=== PATIENT | female | born 1980 | race Caucasian/White ===

== ENCOUNTER 2017-02-12 14:40 | Emergency (ER) | payer OTHER ==
[~2017-02-12] VITALS: Ht 149.9 cm; Wt 72.6 kg
--- NOTE | 2017-02-12 14:40 | NUR ---
Patient was BIB [place] [employer] and taken to bed 08 waiting to be evaluated for medical clearance.
--- NOTE | 2017-02-12 14:42 | NUR ---
PATIENT BIB [facility] FOR PRE-BOOK CLEARANCE . PT STATES SHE HAS HX OF ASTHMA AND FEELS SOB AND HAS PAIN W/INSPIRATION . DENIES N/V/D; SKIN IS PINK/WARM/DRY; AAOX4 WITH EVEN AND STEADY GAIT; LUNGS CLEAR BL; HR EVEN AND REGULAR; PT DENIES ANY FEVER, OR COUGH AT THIS TIME; PATIENT STATES PAIN OF 10/10 AT THIS TIME; VSS; PATIENT POSITIONED FOR COMFORT; HOB ELEVATED; BEDRAILS UP X2; BED DOWN. ER MD MADE AWARE OF PT STATUS. [facility]IE[facility]e AT BEDSIDE.
--- NOTE | 2017-02-12 14:45 | NUR ---
DR. C[place]AND AT BEDSIDE.
[2017-02-12 14:48] VITALS: BP 136/92
[2017-02-12] MEDS ORDERED: ACETAMINOPHEN 325 MG TAB PO ONE (14:55)
--- NOTE | 2017-02-12 15:04 | NUR ---
MEDICATION ADMINISTERED ORDERED.
--- NOTE | 2017-02-12 15:08 | NUR ---
WENT TO XRAY ACCOMPANIED BY CHRISTEL AND MONI CANTU.
[2017-02-12 15:46] VITALS: BP 119/82
--- NOTE | 2017-02-12 15:49 | NUR ---
Patient discharged with v/s stable. Written and verbal after care instructions given and explained. Patient verbalized understanding. Police ESCORT with steady gait. All questions addressed prior to discharge. Advised to follow up with PMD.
== END 2017-02-12 15:49 ==
LOC: MED 14:40
DX: S20.219A Contusion of unspecified front wall of thorax, initial encounter (principal); F17.210 Nicotine dependence, cigarettes, uncomplicated; V43.52XA Car driver injured in collision with other type car in traffic accident, initial encounter; Y93.I9 Activity, other involving external motion; Y92.488 Other paved roadways as the place of occurrence of the external cause; Y99.8 Other external cause status
CPT/HCPCS: 71020; 99284

== ENCOUNTER 2018-07-24 10:09 | Emergency (ER) | payer OTHER ==
[~2018-07-24] VITALS: Ht 154.9 cm; Wt 80.7 kg
[2018-07-24 10:13] VITALS: BP 99/57
--- NOTE | 2018-07-24 10:15 | NUR ---
PATIENT BIB [place] [employer]. PATIENT EXAMINED BY DR. WHEELER. PT DENIES PAIN, NO OTHER COMPLAINTS. AMB TO CHAIR E. ED NOTIFIED.
[2018-07-24 10:47] VITALS: BP 99/57
--- NOTE | 2018-07-24 10:49 | NUR ---
PATIENT MEDICALLY CLEARED AND RELEASED IN CUSTODY IN STABLE CONDITION. ORIGINAL PRE-BOOK FORM GIVEN TO OFFICER .
== END 2018-07-24 10:49 ==
LOC: MED 10:09
DX: Z02.89 Encounter for other administrative examinations (principal)
CPT/HCPCS: 99283

== ENCOUNTER 2019-02-19 12:14 | Inpatient (IN) | payer OTHER ==
[~2019-02-19] VITALS: Ht 154.9 cm; Wt 122.5 kg
[2019-02-19 12:40] VITALS: BP 105/59
[2019-02-19] MEDS ORDERED: METHYLERGONOVINE 0.2 MG/ML AMP IM PRN (14:10)
[2019-02-19] MEDS ORDERED: BLOOD GLUCOSE MONITORING 1 DEV DEV FS SCH (14:10)
[2019-02-19] MEDS ORDERED: OXYTOCIN 20 UNITS in LACTATED RINGERS 1,000 ML IV SCH (14:10)
[2019-02-19] MEDS ORDERED: CARBOPROST 250 MCG/ML AMP IM PRN (14:10)
[2019-02-19] MEDS ORDERED: LACTATED RINGERS 1,000 ML IV SCH (14:10)
[2019-02-19] MEDS ORDERED: MISOPROSTOL 25 MCG TAB VG SCH (14:10)
[2019-02-19] MEDS ORDERED: MISOPROSTOL 25 MCG TAB ONE ×2 (14:27→18:30)
[2019-02-19 15:04] LABS: HEMATOCRIT 39.5 % (36-48); HEMOGLOBIN 13.3 g/dL (12.0-16.0); MEAN CORPUSCULAR HEMOGLOBIN 29 pg (27-31); MEAN CORPUSCULAR HGB CONC 34 g/dL (33-37); MEAN CORPUSCULAR VOLUME 85.7 fL (80-94); PLATELET COUNT (AUTO) 137 K/uL (140-450); RED BLOOD CELL COUNT(AUTO) 4.61 MIL/uL (4.20-5.40); RED CELL DISTRIBUTION WIDTH 13.9 % (11.6-13.7); WHITE BLOOD COUNT (AUTO) 7.3 K/uL (4.8-10.8)
[2019-02-19 15:11] LABS: APPEARANCE,URINE CLEAR (CLEAR); BILIRUBIN,URINE NEGATIVE (NEGATIVE); BLOOD, URINE NEGATIVE (NEGATIVE); COLOR,URINE YELLOW (YELLOW); LEUKOCYTE ESTERASE ,URINE 1+ (NEGATIVE); NITRITE, URINE NEGATIVE (NEGATIVE); UGLUCOSE NEGATIVE (NEGATIVE)
[2019-02-19 16:01] LABS: RBC,URINE 0 /HPF (0-5); WBC,URINE 0-5 /HPF (0-5)
[2019-02-19 16:20] LABS: ANION GAP 16.7 (8-16); CARBON DIOXIDE 20.2 mmol/L (21-32); CREATININE 0.6 mg/dL (0.6-1.3); POTASSIUM 3.9 mmol/L (3.5-5.1)
[2019-02-19 16:21] LABS: PLATELET COUNT,MANUAL 140 K/uL (150-450)
[2019-02-19 16:22] LABS: EOSINOPHILS # (AUTO) 0.2 K/uL (0-0.4); LYMPHOCYTES # (AUTO) 2.1 K/uL (2.5-16.5); MONOCYTES # (AUTO) 0.5 K/uL (0.8-1.0); NEUTROPHILS # (AUTO) 4.6 K/uL (1.8-7.7)
[2019-02-19 16:23] LABS: BASOPHILS % (AUTO) 0.5 % (0.0-2.0); BASOPHILS % (MANUAL) 0 % (0-2); EOSINOPHILS % (AUTO) 2.3 % (0.0-4.0); EOSINOPHILS % (MANUAL) 0 % (0-4); LYMPHOCYTES % (AUTO) 32.3 % (20.5-51.1); LYMPHOCYTES % (MANUAL) 32 % (20-46); MONOCYTES % (AUTO) 6.4 % (1.7-9.3); MONOCYTES % (MANUAL) 3 % (5-12); NEUTROPHILS % (AUTO) 62.5 % (42.2-75.2)
[2019-02-19 16:26] LABS: ALBUMIN 2.5 g/dL (3.4-5.0); TOTAL BILIRUBIN 0.2 mg/dL (0.0-1.0)
[2019-02-19] MEDS ORDERED: PREN-380 PO (18:33)
[2019-02-19] MEDS ORDERED: INSU100S10 SC (18:33)
[2019-02-19] MEDS ORDERED: OXYTOCIN 20 UNITS/LR PREMIX 1,000 ML IV ONE (20:57)
[2019-02-19] MEDS ORDERED: ROPIVACAINE 0.2%/NS PREMIX 100 ML EPI ONE (23:35)
--- NOTE | 2019-02-20 08:10 | NUR ---
PATIENT HAS BEEN SCREENED AND CATEGORIZED LOW NUTRITION RISK. PATIENT WILL BE SEEN WITHIN 7 DAYS OF ADMISSION. 02/26/[address]
[2019-02-20] MEDS ORDERED: ROPIVACAINE 0.2%/NS PREMIX 100 ML EPI ONE (09:49)
[2019-02-20] MEDS ORDERED: fentaNYL 0.05 MG/ML VIAL ONE (13:55)
[2019-02-20] MEDS ORDERED: IBUPROFEN 800 MG TAB PO PRN (14:15)
[2019-02-20] MEDS ORDERED: MEASLES, MUMPS, AND RUBELLA 1 VIAL SQVAC PRN (14:15)
[2019-02-20] MEDS ORDERED: BENZOCAINE/MENTHOL 20%-0.5% 60 GM CAN TP PRN (14:15)
[2019-02-20] MEDS ORDERED: METHYLERGONOVINE 0.2 MG/ML AMP IM PRN (14:15)
[2019-02-20] MEDS ORDERED: METHYLERGONOVINE 0.2 MG TAB PO PRN (14:15)
[2019-02-20] MEDS ORDERED: OXYTOCIN 10 UNITS/ML VIAL IM PRN (14:15)
[2019-02-20] MEDS ORDERED: fentaNYL 0.05 MG/ML VIAL IVP ONE (14:20)
[2019-02-21 11:12] LABS: HEMATOCRIT 33.7 % (36-48); HEMOGLOBIN 11.1 g/dL (12.0-16.0)
[2019-02-21] MEDS ORDERED: INFLUENZA VACCINE QUAD 0.5 ML SYR IMVAC PRN ×2 (21:05→22:40)
== END 2019-02-22 16:10 | disposition home or self-care (01) | DRG 560 ==
LOC: MLD 12:14 → MFCC 02-20 15:45
PROVIDERS: ADMIT Obstetrics & Gynecology; ATTEND Obstetrics & Gynecology
PROC: 00HU33Z Insertion of Infusion Device into Spinal Canal, Percutaneous Approach (ICD-10-PCS; 2019-02-19)
PROC: 3E0R3BZ Introduction of Anesthetic Agent into Spinal Canal, Percutaneous Approach (ICD-10-PCS; 2019-02-19)
PROC: 10E0XZZ Delivery of Products of Conception, External Approach (ICD-10-PCS; principal; 2019-02-20)
PROC: 0KQM0ZZ Repair Perineum Muscle, Open Approach (ICD-10-PCS; 2019-02-20)
PROC: 3E0P7VZ Introduction of Hormone into Female Reproductive, Via Natural or Artificial Opening (ICD-10-PCS; 2019-02-20)
PROC: 10907ZC Drainage of Amniotic Fluid, Therapeutic from Products of Conception, Via Natural or Artificial Opening (ICD-10-PCS; 2019-02-20)
PROC: 3E0134Z Introduction of Serum, Toxoid and Vaccine into Subcutaneous Tissue, Percutaneous Approach (ICD-10-PCS; 2019-02-21)
PROC: 3E0234Z Introduction of Serum, Toxoid and Vaccine into Muscle, Percutaneous Approach (ICD-10-PCS; 2019-02-21)
DX: O70.1 Second degree perineal laceration during delivery (principal); D62 Acute posthemorrhagic anemia; O24.424 Gestational diabetes mellitus in childbirth, insulin controlled; O90.81 Anemia of the puerperium; E66.01 Morbid (severe) obesity due to excess calories; O69.81X0 Labor and delivery complicated by cord around neck, without compression, not applicable or unspecified; O99.214 Obesity complicating childbirth; Z37.0 Single live birth; Z3A.38 38 weeks gestation of pregnancy; Z23 Encounter for immunization
CPT/HCPCS: 36415; 51702; 59409; 76815; 80053; 81001; 82948; 85018; 85025; 86592; 86886; 86900; 86901; 87086; 90707; 90715; J2590; J2795; J3010; J7120; Q0092